=== PATIENT | female | born 1980 | race Caucasian/White ===

== ENCOUNTER 2023-07-02 09:04 | Day surgery (SDC) | payer BC ==
[2023-06-25 12:36] VITALS: BMI 29.6
[2023-07-02 09:34] VITALS: RESP 16
[2023-07-02 11:08] VITALS: TEMP 97.8
[2023-07-02 11:42] VITALS: BP 109/65; PULSE 74
== END 2023-07-02 11:44 | disposition home or self-care (01) ==
LOC: FASU-ENDO 09:04
PROVIDERS: ATTEND Internal Medicine Gastroenterology
PROC: 0DJD8ZZ Inspection of Lower Intestinal Tract, Via Natural or Artificial Opening Endoscopic (ICD-10-PCS; principal; 2023-07-02 10:44)
DX: Z12.11 Encounter for screening for malignant neoplasm of colon (principal); K64.1 Second degree hemorrhoids; K64.8 Other hemorrhoids
CPT/HCPCS: 81025